=== PATIENT | male | born 1960 | race American Indian/Alaskan Native ===

== ENCOUNTER 2024-08-29 11:06 | Emergency (ER) | payer OTHER ==
[2024-08-29] MEDS: Metoclopramide 10 MG/2 ML SDV IVPUSH ONE (11:50)
[2024-08-29] MEDS: Acetaminophen 325 MG Tab PO ONE (11:50)
[2024-08-29 11:52] LABS: HEMATOCRIT 39.9 % (42.0-52.0); HEMOGLOBIN 13.7 g/dL (14.0-18.0); MEAN CORPUSCULAR HEMOGLOBIN 31.7 pg (28.0-32.0); MEAN CORPUSCULAR HGB CONC 34.3 g/dL (32.0-36.0); MEAN CORPUSCULAR VOLUME 92.4 fL (83.0-99.0); MEAN PLATELET VOLUME 11.2 fL (9.4-12.4); PLATELET COUNT,PLT 173 K/uL (150-400); RED BLOOD CELL COUNT 4.32 M/uL (4.52-5.90); WHITE BLOOD CELL COUNT,WBC 6.02 K/uL (3.9-11.3)
[2024-08-29 12:13] LABS: BASOPHILS ABSOLUTE MAN 0.12 K/uL (0.00-0.20); BASOPHILS PERCENT MAN 2 % (0-1); LYMPHOCYTES PERCENT MAN 10 % (24-44); MONOCYTES PERCENT MAN 10 % (0-8); SEG NEUTROPHILS PERCENT MAN 78 % (41-71)
[2024-08-29 12:20] LABS: A/G RATIO 1.3 (0.9-1.6); BILIRUBIN TOTAL 0.7 mg/dL (0.2-1.0); CARBON DIOXIDE,CO2 29.9 mmol/L (21.0-32.0); CREATININE 0.8 mg/dL (0.8-1.3); EST CRCL DRUG DOSING (CG) 74.65 mL/min
[2024-08-29 13:11] LABS: APPEARANCE,URINE CLEAR; BILIRUBIN,URINE NEGATIVE (NEGATIVE); COLOR,URINE YELLOW; GLUCOSE,URINE NEGATIVE (NEGATIVE); KETONES,URINE TRACE mg/dL (NEGATIVE); LEUKOCYTE ESTERASE,URINE NEGATIVE (NEGATIVE); NITRITE,URINE NEGATIVE (NEGATIVE); OCCULT BLOOD,URINE NEGATIVE (NEGATIVE); PROTEIN,URINE NEGATIVE (NEGATIVE); UROBILINOGEN,URINE 0.2 EU/dL (<2.0)
== END 2024-08-29 14:14 | disposition home or self-care (01) ==
LOC: MERGE 11:06 → MW.ED 11:06
DX: R53.83 Other fatigue (principal); R51.9 Headache, unspecified; R42 Dizziness and giddiness; Z79.899 Other long term (current) drug therapy
CPT/HCPCS: 36415; 70450; 71046; 80053; 81003; 84484; 85025; 87428; 93005; 96374; 99285; A9270; J2765

== ENCOUNTER 2024-09-04 10:11 | Emergency (ER) | payer MEDICARE ==
[2024-09-04] MEDS: Sodium Chloride 0.9% 1,000 ML IV ONE (10:40)
[2024-09-04 10:55] LABS: BASOPHILS ABSOLUTE AUTO 0.02 K/uL (0.00-0.20); BASOPHILS PERCENT AUTO 0.2 % (0.0-1.0); EOSINOPHILS ABSOLUTE AUTO 0.01 K/uL (0.00-0.45); EOSINOPHILS PERCENT AUTO 0.1 % (0.0-6.0); HEMATOCRIT 44.6 % (42.0-52.0); HEMOGLOBIN 15.1 g/dL (14.0-18.0); IMMATURE GRAN ABSOLUTE AUTO 0.04 K/uL (0.00-0.05); IMMATURE GRAN PERCENT AUTO 0.4 % (0.0-0.4); LYMPHOCYTES ABSOLUTE AUTO 2.18 K/uL (1.00-4.80); LYMPHOCYTES PERCENT AUTO 22.1 % (24.0-44.0); MEAN CORPUSCULAR HEMOGLOBIN 31.5 pg (28.0-32.0); MEAN CORPUSCULAR HGB CONC 33.9 g/dL (32.0-36.0); MEAN CORPUSCULAR VOLUME 92.9 fL (83.0-99.0); MEAN PLATELET VOLUME 11.1 fL (9.4-12.4); MONOCYTES ABSOLUTE AUTO 0.97 K/uL (0.00-0.80); MONOCYTES PERCENT AUTO 9.8 % (0.0-8.0); NEUTROPHILS ABSOLUTE AUTO 6.63 K/uL (1.80-7.70); NEUTROPHILS PERCENT AUTO 67.4 % (41.0-71.0); PLATELET COUNT,PLT 236 K/uL (150-400); WHITE BLOOD CELL COUNT,WBC 9.85 K/uL (3.9-11.3)
[2024-09-04 10:55] LABS: APPEARANCE,URINE CLEAR; BILIRUBIN,URINE NEGATIVE (NEGATIVE); COLOR,URINE YELLOW; GLUCOSE,URINE NEGATIVE (NEGATIVE); KETONES,URINE NEGATIVE (NEGATIVE); LEUKOCYTE ESTERASE,URINE NEGATIVE (NEGATIVE); NITRITE,URINE NEGATIVE (NEGATIVE); OCCULT BLOOD,URINE NEGATIVE (NEGATIVE); PROTEIN,URINE NEGATIVE (NEGATIVE); UROBILINOGEN,URINE 0.2 EU/dL (<2.0)
[2024-09-04 11:05] LABS: AMPHETAMINES SCREEN, URINE NEGATIVE (CUTOFF=500); BARBITURATE SCREEN,URINE NEGATIVE (CUTOFF=200); BENZODIAZEPINES SCREEN,URINE NEGATIVE (CUTOFF=150); BUPRENORPHINE SCREEN,URINE NEGATIVE (CUTOFF=10); METHADONE SCREEN, URINE NEGATIVE (CUTOFF=200); METHAMPHETAMINES SCREEN, URINE NEGATIVE (CUTOFF=500); OXYCODONE SCREEN,URINE NEGATIVE (CUT0FF=100); PCP SCREEN,URINE NEGATIVE (CUTOFF=25); THC SCREEN,URINE 20 NG/ML NEGATIVE (CUTOFF=50)
[2024-09-04 11:10] LABS: INR 0.98 (0.86-1.11)
[2024-09-04 11:27] LABS: A/G RATIO 1.3 (0.9-1.6); ALBUMIN 4.5 g/dL (3.4-5.0); BILIRUBIN TOTAL 0.7 mg/dL (0.2-1.0); CALCIUM 9.7 mg/dL (8.5-10.1); EST CRCL DRUG DOSING (CG) 63.09 mL/min; MAGNESIUM 2.1 mg/dL (1.8-2.4); PROTEIN TOTAL,TP 7.9 g/dL (6.4-8.2)
== END 2024-09-04 11:58 | disposition left against medical advice (07) ==
LOC: MW.ED 10:11
DX: G43.909 Migraine, unspecified, not intractable, without status migrainosus (principal); E78.00 Pure hypercholesterolemia, unspecified; Z75.8 Other problems related to medical facilities and other health care; Z88.8 Allergy status to other drugs, medicaments and biological substances; Z79.899 Other long term (current) drug therapy
CPT/HCPCS: 36415; 80053; 80305; 81003; 83690; 83735; 85025; 85610; 96360; 99284; J7030

== ENCOUNTER 2024-09-19 07:36 | Emergency (ER) | payer MEDICARE ==
[2024-09-19] MEDS: Sodium Chloride 0.9% 1,000 ML IV ONE (07:57)
[2024-09-19 08:04] LABS: BASOPHILS ABSOLUTE AUTO 0.01 K/uL (0.00-0.20); BASOPHILS PERCENT AUTO 0.1 % (0.0-1.0); EOSINOPHILS ABSOLUTE AUTO 0.02 K/uL (0.00-0.45); EOSINOPHILS PERCENT AUTO 0.2 % (0.0-6.0); HEMATOCRIT 38.9 % (42.0-52.0); HEMOGLOBIN 13.3 g/dL (14.0-18.0); IMMATURE GRAN ABSOLUTE AUTO 0.15 K/uL (0.00-0.05); IMMATURE GRAN PERCENT AUTO 1.3 % (0.0-0.4); LYMPHOCYTES PERCENT AUTO 13.7 % (24.0-44.0); MEAN CORPUSCULAR HEMOGLOBIN 31.7 pg (28.0-32.0); MEAN CORPUSCULAR HGB CONC 34.2 g/dL (32.0-36.0); MEAN CORPUSCULAR VOLUME 92.8 fL (83.0-99.0); MEAN PLATELET VOLUME 10.4 fL (9.4-12.4); MONOCYTES ABSOLUTE AUTO 1.17 K/uL (0.00-0.80); NEUTROPHILS ABSOLUTE AUTO 8.76 K/uL (1.80-7.70); NEUTROPHILS PERCENT AUTO 74.7 % (41.0-71.0); PLATELET COUNT,PLT 230 K/uL (150-400); RED BLOOD CELL COUNT 4.19 M/uL (4.52-5.90); WHITE BLOOD CELL COUNT,WBC 11.71 K/uL (3.9-11.3)
[2024-09-19 08:06] LABS: APPEARANCE,URINE CLEAR; BILIRUBIN,URINE NEGATIVE (NEGATIVE); COLOR,URINE YELLOW; GLUCOSE,URINE NEGATIVE (NEGATIVE); KETONES,URINE NEGATIVE (NEGATIVE); LEUKOCYTE ESTERASE,URINE NEGATIVE (NEGATIVE); NITRITE,URINE NEGATIVE (NEGATIVE); OCCULT BLOOD,URINE NEGATIVE (NEGATIVE); PH,URINE 6.5 (5.0-8.0); PROTEIN,URINE NEGATIVE (NEGATIVE); UROBILINOGEN,URINE 0.2 EU/dL (<2.0)
[2024-09-19 08:16] LABS: AMPHETAMINES SCREEN, URINE NEGATIVE (CUTOFF=500); BARBITURATE SCREEN,URINE NEGATIVE (CUTOFF=200); BENZODIAZEPINES SCREEN,URINE NEGATIVE (CUTOFF=150); BUPRENORPHINE SCREEN,URINE NEGATIVE (CUTOFF=10); METHADONE SCREEN, URINE NEGATIVE (CUTOFF=200); METHAMPHETAMINES SCREEN, URINE NEGATIVE (CUTOFF=500); OXYCODONE SCREEN,URINE NEGATIVE (CUT0FF=100); PCP SCREEN,URINE NEGATIVE (CUTOFF=25); THC SCREEN,URINE 20 NG/ML NEGATIVE (CUTOFF=50)
[2024-09-19 08:21] LABS: INR 0.95 (0.86-1.11)
[2024-09-19 08:37] LABS: A/G RATIO 1.1 (0.9-1.6); ALANINE AMINOTRANSFERASE,ALT 31 IU/L (14-63); ALBUMIN 3.6 g/dL (3.4-5.0); ALKALINE PHOSPHATASE 110 U/L (46-116); ASPARTATE AMNIOTRANSFERASE,AST 19 IU/L (15-37); BILIRUBIN TOTAL 0.4 mg/dL (0.2-1.0); BLOOD UREA NITROGEN,BUN 7 mg/dL (7.0-18.0); CALCIUM 8.7 mg/dL (8.5-10.1); CARBON DIOXIDE,CO2 29.4 mmol/L (21.0-32.0); CHLORIDE,CL 105 mmol/L (98-107); CREATININE 0.9 mg/dL (0.8-1.3); EST CRCL DRUG DOSING (CG) 70.23 mL/min; GLUCOSE RANDOM 104 mg/dL (74-106); POTASSIUM,K 4.1 mmol/L (3.5-5.1); PROTEIN TOTAL,TP 6.8 g/dL (6.4-8.2); SODIUM,NA 141 mmol/L (136-148)
[2024-09-19 08:38] LABS: C-REACTIVE PROTEIN < 0.05 mg/dL (<0.3); ESTIMATED GFR 97 mL/min (>60); ETHANOL BLOOD MEDICAL < 3.0 mg/dL
[2024-09-19] MEDS: Acetaminophen/oxyCODONE 325-5 MG Tab PO ONE (08:58)
[2024-09-19] MEDS: SUMAtriptan 6 MG/0.5 ML SDV SUBCUT ONE (09:02)
[2024-09-19] MEDS: Dexamethasone 4 MG/ML SDV IVPUSH ONE (10:14)
[2024-09-19] MEDS: Prochlorperazine 10 MG/2 ML SDV IVPUSH ONE (10:14)
[2024-09-19] MEDS: diphenhydrAMINE 50 MG/ML SDV IVPUSH ONE (10:14)
[2024-09-19] MEDS: Iopamidol 755 MG/ML 500 ML Multipack Bottle IVPUSH STA (11:54)
== END 2024-09-19 12:36 | disposition left against medical advice (07) ==
LOC: MW.ED 07:36
DX: R51.9 Headache, unspecified (principal); G89.29 Other chronic pain; R35.0 Frequency of micturition; R10.30 Lower abdominal pain, unspecified; E78.00 Pure hypercholesterolemia, unspecified; Z79.899 Other long term (current) drug therapy; Z88.5 Allergy status to narcotic agent; Z88.8 Allergy status to other drugs, medicaments and biological substances; Z87.438 Personal history of other diseases of male genital organs; Z85.46 Personal history of malignant neoplasm of prostate
CPT/HCPCS: 36415; 70450; 70496; 74177; 80053; 80305; 80307; 81003; 85025; 85610; 85652; 86140; 96361; 96374; 96375; 99285; A9270; J0780; J1100; J1200; J7030; Q9967